=== PATIENT | female | born 1960 | race Caucasian/White ===

== ENCOUNTER 2018-04-18 13:49 | Inpatient (IN) | payer OTHER ==
[~2018-04-18] VITALS: Ht 167.6 cm; Wt 88.2 kg
--- NOTE | ~2018-04-18 | EKG ---
[place], [place] ELECTROCARDIOGRAM REPORT NAME: CASTRO SNELL UNIT #: [id number] ROOM: 427 DOCTOR: ELVA DRAFT REPORT BIRTHDATE: [birth year] [facility] Test Date: 2018-04-18 Test Time: 20:22:15 Pat Name: CASTRO SNELL Department: Room: 427 1 Gender: F Nutrition Internship: Leola Suazo : 1960 Requested By: NINA CUELLAR Order Number: [id number] Reading MD: Marc Kaufman MD Measurements Intervals [place] Rate: 98 P: 68 ME: 165 QRS: 7 QRSD: 88 T: 53 QT: 352 QTc: 450 Interpretive Statements Sinus rhythm No change from earlier ECG this date Electronically Signed On 04-19-2018 5:32:04 PST by Marc Kaufman MD CM:EKGRPT:ELECTROCARDIOGRAM REPORT 21 [id number] NINA HEALY DRAFT REPORT NINA CUELLAR DO
--- NOTE | ~2018-04-18 | EKG ---
[place], [place] ELECTROCARDIOGRAM REPORT NAME: CASTRO SNELL UNIT #: [id number] ROOM: 427 DOCTOR: ELVA DRAFT REPORT BIRTHDATE: [birth year] [facility] Test Date: 2018-04-18 Test Time: 16:49:34 Pat Name: CASTRO SNELL Department: Room: 427 1 Gender: F Laboratory Veterinarian: Leola Suazo : 1960 Requested By: NINA CUELLAR Order Number: [id number] Reading MD: Marc Kaufman MD Measurements Intervals [place] Rate: 92 P: 54 [place]: 163 QRS: -13 QRSD: 88 T: 31 QT: 355 QTc: 440 Interpretive Statements Sinus rhythm No change from earlier ECG this date Electronically Signed On 04-18-2018 17:58:12 PST by Marc Kaufman MD CM:EKGRPT:ELECTROCARDIOGRAM REPORT [id number] 1758 NINA HEALY DRAFT REPORT NINA CUELLAR DO
--- NOTE | ~2018-04-18 | EKG ---
[place], [place] ELECTROCARDIOGRAM REPORT NAME: CASTRO SNELL UNIT #: [id number] ROOM: 427 DOCTOR: ELVA DRAFT REPORT BIRTHDATE: [birth year] [facility] Test Date: 2018-04-18 Test Time: 14:40:11 Pat Name: CASTRO SNELL Department: Room: 427 Gender: F Director Clinical Pharmacology: Leola Suazo : 1960 Requested By: DAVID EDMONDSON DNP Order Number: [id number] Reading MD: Marc Kaufman MD Measurements Intervals [place] Rate: 102 P: 66 [place]: 163 QRS: 9 QRSD: 82 T: 78 QT: 328 QTc: 428 Interpretive Statements Sinus tachycardia Baseline wander in lead(s) V2 No previous ECG available for comparison Electronically Signed On 04-18-2018 17:56:16 PST by Marc Kaufman MD CM:EKGRPT:ELECTROCARDIOGRAM REPORT [id number] 1756 DAVID JIMENEZANY DRAFT REPORT DAVID EDMONDSON DNP
[2018-04-18 13:51] VITALS: BP 132/63
[2018-04-18 14:54] LABS: BASO % 0.2 % (0.0-1.0); EOS % 0.1 % (1.0-4.0); HEMATOCRIT 38.3 % (37.0-47.0); HEMOGLOBIN 12.6 g/dl (12.0-16.0); LYMPH # 0.6 10*3/uL (1.3-4.4); LYMPH % 6.9 % (27.0-41.0); MEAN CELL VOLUME 87.8 fl (81.0-99.0); MEAN CORPUSCULAR HGB 28.9 pg (27.0-31.0); MEAN CORPUSCULAR HGB CONC 32.9 g/dl (33.0-37.0); MEAN PLATELET VOLUME 10.6 fl (9.6-12.3); MONO # 0.8 10*3/uL (0.1-1.0); MONO % 9.3 % (3.0-9.0); NEUT # 6.7 10*3/uL (2.3-7.9); NEUT % 82.5 % (47.0-73.0); PLATELET COUNT AUTOMATED 213 10*3/uL (130-400); RED BLOOD COUNT 4.36 10*6/uL (4.10-5.10); RED CELL DISTRI WIDTH 13.3 % (0-14.5); WHITE BLOOD COUNT 8.2 10*3/uL (4.8-10.8)
[2018-04-18 14:55] LABS: BILIRUBIN NEGATIVE (NEGATIVE); BLOOD TRACE-INTACT (NEGATIVE); CLARITY CLEAR (CLEAR); COLOR YELLOW (YELLOW); GLUCOSE 3+ (NEGATIVE); KETONE 2+ (NEGATIVE); LEUKO ESTERASE NEGATIVE (NEGATIVE); NITRITE NEGATIVE (NEGATIVE); PH 5.5 (5.0-9.0); SPECIFIC GRAVITY 1.025 (1.005-1.030); UROBILINOGEN 0.2 E.U./dl (0.2-1.0)
[2018-04-18 15:02] LABS: BACTERIA 1+; HYALINE CAST 0-2
[2018-04-18 15:04] LABS: ACT PARTIAL THROMBO TIME 24.1 SECONDS (20.8-31.5); INTERNATIONAL NORM RATIO 1.1 (2.0-3.5)
[2018-04-18 15:17] LABS: ALBUMIN 3.3 gm/dl (3.1-4.5); ALKALINE PHOSPHATASE 98 U/L (45-117); BUN 14 mg/dl (7-24); CHLORIDE 99 mmol/L (98-107); CREATININE 1.38 mg/dL (0.55-1.02); LIPASE 145 U/L (73-393); POTASSIUM 4.6 mmol/L (3.5-5.1); SGOT/AST 26 IU/L (3-35); SGPT/ALT 36 U/L (12-78); SODIUM 134 mmol/L (136-145); TOTAL PROTEIN 7.8 gm/dL (6.4-8.2)
[2018-04-18 15:21] LABS: TROPONIN I < 0.015 ng/ml (<0.045)
[2018-04-18 16:00] VITALS: BP 127/73
[2018-04-18 17:10] VITALS: BP 127/73
--- NOTE | 2018-04-18 17:10 | NUR ---
A 57, admitted to , under the services of FARHAD Moss DO with a diagnosis of INFLUENZA A+,ATYPICAL CHEST PAIN,HYPERGLYCEMIA\\. Chief complaint is COUGH,CONGESTION AND "HI BLOOD SUGAR READING". Patient arrived via bed from ER. Monitor applied. Initial assessment completed. Vital signs taken and recorded. FARHAD MOSS DO notified of admission to the unit. Orders received. See assessment for past medical history, medications and allergies. Patient and/or family oriented to unit. [facility] visitation policy reviewed. Clothing/patient valuable form completed. SADA LLOYD
--- NOTE | 2018-04-18 18:29 | NUR ---
MED RECONCILIATION COMPLETE. PT TAKES NO HOME MEDS AND HAS NO MEDICAL HX OTHER THAN CHOLECYSTECTOMY. PT STATES SHE HAS NO PCP.
[2018-04-18 20:00] VITALS: BP 109/61
[2018-04-19] VITALS: BP 123/65
[2018-04-19 07:14] LABS: BASO % 0.4 % (0.0-1.0); HEMATOCRIT 33.5 % (37.0-47.0); HEMOGLOBIN 11.1 g/dl (12.0-16.0); LYMPH # 1.1 10*3/uL (1.3-4.4); LYMPH % 20.9 % (27.0-41.0); MEAN CELL VOLUME 88.4 fl (81.0-99.0); MEAN CORPUSCULAR HGB 29.3 pg (27.0-31.0); MEAN CORPUSCULAR HGB CONC 33.1 g/dl (33.0-37.0); MEAN PLATELET VOLUME 10.6 fl (9.6-12.3); MONO # 0.8 10*3/uL (0.1-1.0); NEUT # 3.2 10*3/uL (2.3-7.9); NEUT % 62.7 % (47.0-73.0); PLATELET COUNT AUTOMATED 179 10*3/uL (130-400); RED BLOOD COUNT 3.79 10*6/uL (4.10-5.10); RED CELL DISTRI WIDTH 13.7 % (0-14.5); WHITE BLOOD COUNT 5.1 10*3/uL (4.8-10.8)
[2018-04-19 07:44] LABS: CREATININE 1.3 mg/dL (0.55-1.02); PHOSPHOROUS 2.7 mg/dL (2.5-4.9); POTASSIUM 4.2 mmol/L (3.5-5.1)
--- NOTE | 2018-04-19 07:45 | NUR ---
PATIENT IS ALERT AND ORINTENTED X3. PT IS RESTING STATES FEEL SLIGHTLY BETTER THEN YESTERDAY. HAS SLIGHT FEVER. DOESN'T FEEL UP TO GETTING WASHED UP RIGHT NOT MAYBE LATER. GAVE CALL LIGHT AND PUT BED IN LOWEST POSTITION. SHANELL SPRAGUE SPNRCC
[2018-04-19 07:50] VITALS: BP 122/62
[2018-04-19 07:53] LABS: THYROID STIM HORMONE (HS) 0.382 uIU/ml (0.358-4.75)
--- NOTE | 2018-04-19 08:13 | NUR ---
NOTIFIED DR NORTON'S OFFICE OF NEW CONSULT FOR ABNORMAL EKG.
--- NOTE | 2018-04-19 09:00 | NUR ---
Senior Occupational Therapist in to talk to patient. Patient states lives at home with family. There are few steps in the home. Physician: none [facility]acy: [facility] health services: none Patient's level of ADLs: INDEPENDENT Patient has working utilities: all working DME: none Follow-up physician's appointment after d/c: will be made by hospitalist nurse director upon discharge Does patient want to access PORTAL?: no Discharge plan discussed with patient, patient lives at home with family, she is independent in adls and ambulation, works, drives, patient states she will be going home when able and denies any home needs. also discussed with her not having any insurance, patient stated she did have insurance and will [facility] case management called registration to let them know that they would need to copy patient's insurance care. also discussed with her no having a doctor. educated her that she would be given a list of doctors to choose from for a follow up appointment. patient verbalized understanding. PHILLIP OSHEA
--- NOTE | 2018-04-19 09:20 | NUR ---
PATEINT WAS WASHED AND BEDDING CHANGED. PATIENT IS RESTING, GIVEN CALL LIGHT AND BED SET TO LOWEST POSITION. SHANELL KIMCC
[2018-04-19 09:35] LABS: VITAMIN D, 25-HYDROXY 11.7 ng/mL (30-100)
--- NOTE | 2018-04-19 10:57 | NUR ---
YOSELIN WAS GIVIN TYLENOL PER REQUEST FOR MILD FEVER AND ACHES AND PAINS. ALL MEDS WERE GIVEN PATIENT AGREED TO LOVENOX INSTEAD OF WM HOSE. PATIENT IS RESTING NOW HAS CALL NIGHT AND BED IS IN LOWEST POSITION. SHANELL DUCKWORTH
[2018-04-19 12:00] VITALS: BP 102/55
--- NOTE | 2018-04-19 12:38 | NUR ---
PATEINT'S FEVER WENT DOWN SO TYLENOL WAS SUCCESSFULL. PATIENT STATES TYLENOL HELPED WITH BODY ACHES. PATIENT WAS GIVEN CALL LIGHT AND BED IS IN LOWEST POSITION. SHANELL DUCKWORTH
--- NOTE | 2018-04-19 13:25 | NUR ---
PATIENT TRYING TO GET SOME REST GIVEN CALL LIGHT AND BED IN LOWEST POSITION. SHANELL SPRAGUE SPCC
--- NOTE | 2018-04-19 13:43 | NUR ---
Nutritional Support Services Note: Pt given diet instruction on 1800cal diabetic diet. Diet copy given. New onset DM. Encouraged compliance to diet and follow up if needed. Discussed healthy eating and smaller portion sizes. Jennie Romeo Rdn Ld
[2018-04-19 16:00] VITALS: BP 92/53
[2018-04-19 20:51] VITALS: BP 94/49
[2018-04-20] VITALS: BP 107/55
[2018-04-20 06:55] LABS: BASO % 0.4 % (0.0-1.0); EOS % 0.2 % (1.0-4.0); HEMATOCRIT 35.9 % (37.0-47.0); HEMOGLOBIN 11.6 g/dl (12.0-16.0); LYMPH # 1.4 10*3/uL (1.3-4.4); MEAN CELL VOLUME 88.2 fl (81.0-99.0); MEAN CORPUSCULAR HGB 28.5 pg (27.0-31.0); MEAN CORPUSCULAR HGB CONC 32.3 g/dl (33.0-37.0); MONO # 0.6 10*3/uL (0.1-1.0); MONO % 10.6 % (3.0-9.0); NEUT # 3.5 10*3/uL (2.3-7.9); NEUT % 63.3 % (47.0-73.0); PLATELET COUNT AUTOMATED 165 10*3/uL (130-400); RED BLOOD COUNT 4.07 10*6/uL (4.10-5.10); RED CELL DISTRI WIDTH 13.9 % (0-14.5); WHITE BLOOD COUNT 5.6 10*3/uL (4.8-10.8)
[2018-04-20 07:26] LABS: ALBUMIN 2.8 gm/dl (3.1-4.5); BUN 18 mg/dl (7-24); CHLORIDE 104 mmol/L (98-107); CREATININE 1.08 mg/dL (0.55-1.02); POTASSIUM 4.4 mmol/L (3.5-5.1); SGOT/AST 84 IU/L (3-35); SODIUM 135 mmol/L (136-145)
[2018-04-20 07:32] LABS: ALKALINE PHOSPHATASE 120 U/L (45-117); SGPT/ALT 86 U/L (12-78); TOTAL PROTEIN 6.7 gm/dL (6.4-8.2)
[2018-04-20] MEDS ORDERED: TAMIFLU 75MG CA75 MG PO (10:55)
[2018-04-20] MEDS ORDERED: NOVOLIN 70100 UNIT/2 SQ (10:55)
[2018-04-20] MEDS ORDERED: LANTUS SOL100 UNIT/1 SQ (10:55)
[2018-04-20] MEDS ORDERED: ZOFRAN4 MG PO (11:44)
[2018-04-20 12:02] VITALS: BP 103/55
--- NOTE | 2018-04-20 12:30 | NUR ---
PT DISCHARGED AT THIS TIME. IV REMOVED AND PRESSURE DRESSING APPLIED. HEART MONITOR RETURNED TO FLOOR. VERBALIZED UNDERSTANDING OF DISCHARGE INSTRUCTIONS.
== END 2018-04-20 12:30 | disposition home or self-care (01) | DRG 193 ==
LOC: ED 13:49 → EDHOLD 15:56 → 4E 15:56
PROVIDERS: Emergency Medicine; Internal Medicine; Nurse Practitioner Family; ADMIT Internal Medicine
DX: J10.1 Influenza due to other identified influenza virus with other respiratory manifestations (principal); N17.0 Acute kidney failure with tubular necrosis; E87.1 Hypo-osmolality and hyponatremia; E44.0 Moderate protein-calorie malnutrition; B34.9 Viral infection, unspecified; E86.0 Dehydration; E11.65 Type 2 diabetes mellitus with hyperglycemia; R81 Glycosuria; R80.9 Proteinuria, unspecified; R82.4 Acetonuria; R31.9 Hematuria, unspecified; R00.0 Tachycardia, unspecified; E66.3 Overweight; Z88.1 Allergy status to other antibiotic agents; Z91.040 Latex allergy status; Z91.048 Other nonmedicinal substance allergy status; Z82.49 Family history of ischemic heart disease and other diseases of the circulatory system; Z80.9 Family history of malignant neoplasm, unspecified; Z68.29 Body mass index [BMI] 29.0-29.9, adult

== ENCOUNTER → 2018-07-18 | Outpatient (CLI) | payer OTHER ==
[~2018-07-18] MED LIST: LANTUS SOL100 UNIT/1 SQ; NOVOLIN 70100 UNIT/2 SQ; TAMIFLU 75MG CA75 MG PO; ZOFRAN4 MG PO
== END | disposition home or self-care (01) ==
LOC: RESCLI 01:27
DX: Z12.11 Encounter for screening for malignant neoplasm of colon (principal); E11.8 Type 2 diabetes mellitus with unspecified complications; N18.3 Chronic kidney disease, stage 3 (moderate); Z79.899 Other long term (current) drug therapy

== ENCOUNTER → 2018-09-03 | Outpatient (CLI) | payer OTHER ==
[2018-09-03 10:46] LABS: ALBUMIN 3.4 gm/dl (3.1-4.5); CREATININE 1.15 mg/dL (0.55-1.02); POTASSIUM 4.1 mmol/L (3.5-5.1); TOTAL PROTEIN 7.6 gm/dL (6.4-8.2)
== END | disposition home or self-care (01) ==
LOC: LAB 09:37
PROVIDERS: Student in an Organized Health Care Education/Training Program
DX: E11.22 Type 2 diabetes mellitus with diabetic chronic kidney disease (principal); N18.3 Chronic kidney disease, stage 3 (moderate)

== ENCOUNTER → 2018-12-31 | Outpatient (CLI) | payer OTHER ==
[2018-12-31 10:17] LABS: BASO % 0.4 % (0.0-1.0); EOS # 0.2 10*3/uL (0.0-0.4); EOS % 2.3 % (1.0-4.0); HEMOGLOBIN 12.9 g/dl (12.0-16.0); LYMPH # 1.9 10*3/uL (1.3-4.4); LYMPH % 22.3 % (27.0-41.0); MEAN CELL VOLUME 90.7 fl (81.0-99.0); MEAN CORPUSCULAR HGB 28.5 pg (27.0-31.0); MEAN CORPUSCULAR HGB CONC 31.5 g/dl (33.0-37.0); MEAN PLATELET VOLUME 12.1 fl (9.6-12.3); MONO # 0.6 10*3/uL (0.1-1.0); MONO % 7.2 % (3.0-9.0); NEUT # 5.7 10*3/uL (2.3-7.9); NEUT % 67.2 % (47.0-73.0); PLATELET COUNT AUTOMATED 243 10*3/uL (130-400); RED BLOOD COUNT 4.52 10*6/uL (4.10-5.10); RED CELL DISTRI WIDTH 14.3 % (0-14.5); WHITE BLOOD COUNT 8.5 10*3/uL (4.8-10.8)
[2018-12-31 10:51] LABS: ALBUMIN 3.7 gm/dl (3.1-4.5); CREATININE 1.23 mg/dL (0.55-1.02); POTASSIUM 4.2 mmol/L (3.5-5.1); TOTAL PROTEIN 8.1 gm/dL (6.4-8.2)
[2019-01-01 07:04] LABS: HEPATITIS B SURFACE AG Negative (Negative)
[2019-01-01 11:07] LABS: CREATININE,URINE 88.5 mg/dL (Not Estab.); MICRO ALBUMIN/CRE RATIO 11.2 (0.0-30.0)
== END | disposition home or self-care (01) ==
LOC: RESCLI 01:34
PROVIDERS: Student in an Organized Health Care Education/Training Program
DX: Z12.4 Encounter for screening for malignant neoplasm of cervix (principal); E11.22 Type 2 diabetes mellitus with diabetic chronic kidney disease; N18.3 Chronic kidney disease, stage 3 (moderate); E78.2 Mixed hyperlipidemia; E66.9 Obesity, unspecified; G47.9 Sleep disorder, unspecified; Z79.4 Long term (current) use of insulin; Z68.34 Body mass index [BMI] 34.0-34.9, adult; Z79.899 Other long term (current) drug therapy

== ENCOUNTER 2019-02-14 11:19 | Emergency (ER) | payer OTHER ==
[~2019-02-14] VITALS: Ht 167.6 cm; Wt 81.6 kg
[2019-02-14 11:22] VITALS: BP 152/79
[2019-02-14] MEDS ORDERED: PREDNISONE50 MG PO (12:54)
[2019-02-14] MEDS ORDERED: CYCLOBENZAPRINE10 MG PO (12:54)
== END 2019-02-14 13:02 | disposition home or self-care (01) ==
LOC: ED 11:19
DX: S39.012A Strain of muscle, fascia and tendon of lower back, initial encounter (principal); E11.9 Type 2 diabetes mellitus without complications; Z88.8 Allergy status to other drugs, medicaments and biological substances; Z79.899 Other long term (current) drug therapy; Z79.4 Long term (current) use of insulin; Z90.49 Acquired absence of other specified parts of digestive tract; X50.0XXA Overexertion from strenuous movement or load, initial encounter; Y93.89 Activity, other specified; Y92.811 Bus as the place of occurrence of the external cause; Y99.0 Civilian activity done for income or pay

== ENCOUNTER → 2019-04-03 | Outpatient (CLI) | payer OTHER ==
[~2019-04-03] MED LIST changes: +CYCLOBENZAPRINE10 MG PO; +PREDNISONE50 MG PO
== END | disposition home or self-care (01) ==
LOC: RESCLI 00:13
DX: Z11.59 Encounter for screening for other viral diseases (principal); E11.22 Type 2 diabetes mellitus with diabetic chronic kidney disease; N18.3 Chronic kidney disease, stage 3 (moderate); E78.2 Mixed hyperlipidemia; E55.9 Vitamin D deficiency, unspecified; Z79.4 Long term (current) use of insulin; Z88.8 Allergy status to other drugs, medicaments and biological substances

== ENCOUNTER → 2019-04-18 | Outpatient (CLI) | payer OTHER | END | disposition home or self-care (01) | LOC: US 12:02 | DX: N18.3 Chronic kidney disease, stage 3 (moderate) (principal) ==

== ENCOUNTER → 2019-04-30 | Outpatient (CLI) | payer OTHER ==
[2019-04-30 10:00] LABS: CHOLESTEROL 146 mg/dL (<200); HDL CHOLESTEROL 48 mg/dl (40-60); LDL CHOLESTEROL 76 mg/dL (9-159); TRIGLYCERIDES 112 mg/dl (<150); VLDL CHOLESTEROL 22 mg/dL (6-40)
== END | disposition home or self-care (01) ==
LOC: LAB 09:13
PROVIDERS: Internal Medicine
DX: Z11.59 Encounter for screening for other viral diseases (principal); E78.2 Mixed hyperlipidemia; E55.9 Vitamin D deficiency, unspecified

== ENCOUNTER → 2020-04-09 | Outpatient (CLI) | payer OTHER | END | disposition home or self-care (01) | LOC: RESCLI 08:38 | PROVIDERS: ATTEND Internal Medicine | DX: E55.9 Vitamin D deficiency, unspecified (principal); E11.22 Type 2 diabetes mellitus with diabetic chronic kidney disease; N18.30 Chronic kidney disease, stage 3 unspecified; Z12.11 Encounter for screening for malignant neoplasm of colon; E78.2 Mixed hyperlipidemia; E66.9 Obesity, unspecified; G47.9 Sleep disorder, unspecified; Z79.899 Other long term (current) drug therapy; Z90.49 Acquired absence of other specified parts of digestive tract; Z88.8 Allergy status to other drugs, medicaments and biological substances ==

== ENCOUNTER 2020-07-13 17:51 | Emergency (ER) | payer OTHER ==
[~2020-07-13] VITALS: Ht 167.6 cm; Wt 83.9 kg
[2020-07-13 17:55] VITALS: BP 147/82
[2020-07-13 18:37] LABS: BASO % 0.3 % (0.0-1.0); EOS # 0.1 10*3/uL (0.0-0.4); HEMATOCRIT 38.5 % (37.0-47.0); LYMPH # 2.2 10*3/uL (1.3-4.4); LYMPH % 23.7 % (27.0-41.0); MEAN CELL VOLUME 88.3 fl (81.0-99.0); MEAN CORPUSCULAR HGB 29.1 pg (27.0-31.0); MEAN PLATELET VOLUME 11.1 fl (9.6-12.3); MONO # 0.7 10*3/uL (0.1-1.0); MONO % 7.3 % (3.0-9.0); NEUT # 6.1 10*3/uL (2.3-7.9); NEUT % 67.3 % (47.0-73.0); PLATELET COUNT AUTOMATED 265 10*3/uL (130-400); RED BLOOD COUNT 4.36 10*6/uL (4.10-5.10); WHITE BLOOD COUNT 9.1 10*3/uL (4.8-10.8)
[2020-07-13 18:48] LABS: INTERNATIONAL NORM RATIO 1.1 (2.0-3.5)
[2020-07-13 18:53] LABS: BILIRUBIN Negative (Negative); BLOOD Negative (Negative); CLARITY Clear (Clear); COLOR Yellow (Yellow); GLUCOSE Negative (Negative); KETONE Negative (Negative); LEUKO ESTERASE 2+ (Negative); NITRITE Negative (Negative); PH 5.5 (4.5-8.0); UROBILINOGEN 0.2 E.U./dl (0.0-1.0)
[2020-07-13 18:54] LABS: ALBUMIN 3.7 gm/dl (3.1-4.5); ALKALINE PHOSPHATASE 79 U/L (45-117); BUN 22 mg/dl (7-24); CHLORIDE 106 mmol/L (98-107); CREATININE 1.16 mg/dL (0.55-1.02); SGOT/AST 20 IU/L (3-35); SODIUM 137 mmol/L (136-145); TOTAL PROTEIN 7.7 gm/dL (6.4-8.2)
[2020-07-13 18:56] LABS: SGPT/ALT 30 U/L (12-78)
[2020-07-13 19:00] LABS: TROPONIN I < 0.015 ng/ml (<0.045)
[2020-07-13 19:25] LABS: BACTERIA TRACE; EPITHELIAL CELLS 16-20; WBC 31-40 wbc/hpf (0-5)
[2020-07-13] MEDS ORDERED: SEPTDS PO (19:42)
== END 2020-07-13 19:50 | disposition home or self-care (01) ==
LOC: ED 17:51
PROVIDERS: Physician Assistant
DX: N39.0 Urinary tract infection, site not specified (principal); R42 Dizziness and giddiness; E11.9 Type 2 diabetes mellitus without complications; Z88.8 Allergy status to other drugs, medicaments and biological substances; Z79.4 Long term (current) use of insulin; Z79.899 Other long term (current) drug therapy; Z90.49 Acquired absence of other specified parts of digestive tract; Z98.890 Other specified postprocedural states

== ENCOUNTER → 2020-07-17 | Outpatient (CLI) | payer OTHER ==
[~2020-07-17] MED LIST changes: +SEPTDS PO
[2020-07-17 09:52] LABS: BASO % 0.3 % (0.0-1.0); EOS # 0.2 10*3/uL (0.0-0.4); EOS % 2.4 % (1.0-4.0); HEMATOCRIT 41.2 % (37.0-47.0); MEAN CORPUSCULAR HGB 29.2 pg (27.0-31.0); MEAN CORPUSCULAR HGB CONC 31.8 g/dl (33.0-37.0); MEAN PLATELET VOLUME 11.8 fl (9.6-12.3); MONO # 0.6 10*3/uL (0.1-1.0); MONO % 8.1 % (3.0-9.0); NEUT % 63.7 % (47.0-73.0); PLATELET COUNT AUTOMATED 267 10*3/uL (130-400); RED BLOOD COUNT 4.48 10*6/uL (4.10-5.10); RED CELL DISTRI WIDTH 13.2 % (0-14.5); WHITE BLOOD COUNT 7.9 10*3/uL (4.8-10.8)
[2020-07-17 10:23] LABS: ALBUMIN 3.8 gm/dl (3.1-4.5); CREATININE 1.49 mg/dL (0.55-1.02); POTASSIUM 4.4 mmol/L (3.5-5.1); TOTAL PROTEIN 7.9 gm/dL (6.4-8.2)
[2020-07-18 08:08] LABS: CREATININE,URINE 108.8 mg/dL (Not Estab.)
== END | disposition home or self-care (01) ==
LOC: LAB 08:21
PROVIDERS: ATTEND Student in an Organized Health Care Education/Training Program
DX: E11.22 Type 2 diabetes mellitus with diabetic chronic kidney disease (principal); N18.30 Chronic kidney disease, stage 3 unspecified; E55.9 Vitamin D deficiency, unspecified

== ENCOUNTER → 2020-07-22 | Outpatient (CLI) | payer OTHER | END | disposition home or self-care (01) | LOC: RESCLI 01:33 | PROVIDERS: ATTEND Internal Medicine | DX: E11.22 Type 2 diabetes mellitus with diabetic chronic kidney disease (principal); N18.30 Chronic kidney disease, stage 3 unspecified; E78.2 Mixed hyperlipidemia; E66.9 Obesity, unspecified; G47.9 Sleep disorder, unspecified; E55.9 Vitamin D deficiency, unspecified; Z12.31 Encounter for screening mammogram for malignant neoplasm of breast; Z12.11 Encounter for screening for malignant neoplasm of colon; Z79.4 Long term (current) use of insulin; Z79.899 Other long term (current) drug therapy; Z90.49 Acquired absence of other specified parts of digestive tract; Z98.890 Other specified postprocedural states; Z88.0 Allergy status to penicillin ==

== ENCOUNTER → 2020-09-10 | Outpatient (CLI) | payer OTHER | END | disposition home or self-care (01) | LOC: RESCLI 02:18 | PROVIDERS: ATTEND Student in an Organized Health Care Education/Training Program | DX: D18.01 Hemangioma of skin and subcutaneous tissue (principal); E11.22 Type 2 diabetes mellitus with diabetic chronic kidney disease; N18.30 Chronic kidney disease, stage 3 unspecified; E78.2 Mixed hyperlipidemia; E66.9 Obesity, unspecified; E55.9 Vitamin D deficiency, unspecified; L81.9 Disorder of pigmentation, unspecified; Z98.890 Other specified postprocedural states; Z90.49 Acquired absence of other specified parts of digestive tract; Z79.899 Other long term (current) drug therapy; Z88.8 Allergy status to other drugs, medicaments and biological substances ==

== ENCOUNTER → 2020-11-10 | Outpatient (CLI) | payer OTHER ==
[2020-11-10 07:55] LABS: CREATININE 1.22 mg/dL (0.55-1.02); POTASSIUM 4.7 mmol/L (3.5-5.1)
== END | disposition home or self-care (01) ==
LOC: LAB 07:26
PROVIDERS: Internal Medicine; ATTEND Student in an Organized Health Care Education/Training Program
DX: E11.22 Type 2 diabetes mellitus with diabetic chronic kidney disease (principal); N18.30 Chronic kidney disease, stage 3 unspecified

== ENCOUNTER → 2020-11-12 | Outpatient (CLI) | payer OTHER | END | disposition home or self-care (01) | LOC: RESCLI 00:24 | PROVIDERS: ATTEND Internal Medicine | DX: E11.22 Type 2 diabetes mellitus with diabetic chronic kidney disease (principal); E78.2 Mixed hyperlipidemia; E66.9 Obesity, unspecified; E55.9 Vitamin D deficiency, unspecified; N18.31 Chronic kidney disease, stage 3a; J02.9 Acute pharyngitis, unspecified ==

== ENCOUNTER 2022-04-28 19:26 | Emergency (ER) | payer OTHER ==
[~2022-04-28] VITALS: Wt 83.9 kg
[2022-04-28 19:54] VITALS: BP 151/79
[2022-04-28] MEDS ORDERED: IBUPROFEN600 MG PO (21:32)
== END 2022-04-28 21:45 | disposition home or self-care (01) ==
LOC: ED 19:26
DX: S93.401A Sprain of unspecified ligament of right ankle, initial encounter (principal); Z88.8 Allergy status to other drugs, medicaments and biological substances; Z90.49 Acquired absence of other specified parts of digestive tract; Z98.890 Other specified postprocedural states; W01.0XXA Fall on same level from slipping, tripping and stumbling without subsequent striking against object, initial encounter; Y93.89 Activity, other specified; Y92.89 Other specified places as the place of occurrence of the external cause; Y99.8 Other external cause status